=== PATIENT | male | born 1990 | race Caucasian/White ===

== ENCOUNTER 2024-02-15 20:25 | Emergency (ER) | payer SELFPAY ==
[2024-02-15] VITALS (7 sets, daily range): BP systolic 149–185; BP diastolic 89–99; BMI 38.3
--- NOTE | 2024-02-15 21:01 | ED.GENMED ---
History of Present Illness
General
Chief Complaint: Blood Pressure Problem
Source: patient and spouse
Exam Limitations: none
Time Seen by Provider: 02/15/24 20:34
History of Present Illness
History of Present Illness:
33-year-old male presents with vague mild headache over the last 2 to 3 days also intermittent right nares nosebleed. Blood pressure was elevated at home with diastolics of 110 although this was a wrist blood pressure. Seen in urgent care and had
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 No chest pain shortness of breath exertional symptoms. No nosebleed currently.
Past History
Past History
ED Past Medical History: GERD and Other (Kidney stone)
ED Past Surgical History: None
Social History
Tobacco: Non-smoker
Alcohol: Occasional
Personal: Single
Living: with family
Employment: Other (High school student)
Family History
Family History: Negative Diabetes, Hypertension or CAD
Review of Systems
Review of Systems
All Other Systems: Not applicable
Constitutional: Denies fever
Respiratory: Reports no symptoms
Cardiac: Reports no symptoms
Phy Exam
Physical Exam
Physical Exam:
GENERAL: Alert and oriented in no apparent distress
EYE: Orbits normal.
NECK: Supple, no significant adenopathy.
ENT: Pharynx without erythema irritation right nasal septum no active bleeding
CARDIAC: Regular rate and rhythm without any obvious murmurs.
LUNGS: Clear breath sounds,normal
ABDOMEN: Soft, without focal tenderness or distention. Elevated BMI.
NEUROLOGICAL: Alert and oriented , grossly non-focal
SKIN: Warm and dry, no rash or lesion, no discoloration, skin intact.
MUSCULOSKELETAL: No edema,no deformity.Good color
PSYCH: Normal and appropriate interaction.
Course
Orders/Labs/Results
Orders:
Orders
02/15/24 20:26
EKG [Electrocardiogram (*1)] Urgent
Reason for Study: Abnormal EKG
EKG- Treatment ONCE
02/15/24 20:48
IV Insert/Care/Rem.- Treatment PRN
02/15/24 20:49
Cardiac Monitoring- Treatment ONCE
02/15/24 21:28
Basic Metabolic Panel Urgent
Complete Blood Count/With Diff Urgent
TSH Reflex To Free T4 Urgent
02/15/24 23:50
Amoxicillin 875 mg/Clav 125 mg [Augmentin 875 mg/125 mg] 1 tablet PO NOW STA
Abnormal Lab Results
02/15/24
21:28
WBC 15.2 H 10^3/uL
(4.8-10.8)
Abs Immat Gran (auto) 0.1 H 10^3/uL
(0-0.05)
Absolute Neuts (auto) 10.3 H 10^3/uL
(1.4-6.5)
Absolute Monos (auto) 1.1 H 10^3/uL
(0.1-0.6)
Immature Gran % 0.6 H %
(0-0.5)
Calcium 10.9 H mg/dl
(8.4-10.2)
02/15/24 21:28
02/15/24 21:28
Vital Signs
Initial and Last Documented VS:
Initial Vital Signs
Temp Pulse Resp BP Pulse Ox
99.6 F 97 16 167/99 99
02/15/24 20:29 02/15/24 20:29 02/15/24 20:29 02/15/24 20:29 02/15/24 20:29
Last Documented Vital Signs
Temp Pulse Resp BP Pulse Ox
99.6 F 81 16 149/91 95
02/15/24 20:29 02/15/24 23:30 02/15/24 23:30 02/15/24 23:30 02/15/24 23:30
MDM/Problems Addressed
Differential Diagnosis Includes:
I do not feel the nosebleed has any issue with his hypertension. His irritation of the nasal septum. Currently not bleeding. Headaches are minimal in nature. Stable neurologic symptoms. No indication for radiologic testing. EKG findings at
urgent care are nonurgent. As it showed an incomplete right bundle and left anterior fascicular block. Our EKG just shows left axis deviation and he has no acute cardiac symptoms. Will however monitor his blood pressure check his renal function
check his thyroid.
*Pulse Oximetry
Patient hypoxic: no
*EKG
Interpreted by ED Provider?: Yes
Interpretation: normal
Comparison EKG: no comparison EKG present
Heart Rate: 93
Rate: normal
Rhythm: sinus
[place]: left axis deviation
Interval: normal interval
QRS Pattern: normal QRS
Ischemia: no ischemia
*Critical Care Note
Total Time (30-74mins, 75-104mins- exclusive of procedures): Not Applicable
Update Note
Update Note:
Medically stable. Leukocytosis. Previously had leukocytosis x 2. Unsure whether this is just related to when he is ill or whether he runs a chronic leukocytosis. He does have some more right-sided headache although vague and mild in nature.
Will cover for possible sinusitis. Blood pressure mildly elevated but does not warrant emergent management. Discussed options of starting amlodipine versus exercise weight reduction and close follow-up. He would like to hold on hypertensive meds
at this time.
ED Attending Note
-
Portions of this chart may have been created with voice recognition software.� Occasional wrong word or��sound alike� substitutions may have occurred due to the inherent limitations of voice recognition software.
Discharge Plan
Departure
Patient Disposition: Home (Routine Discharge)
Date of Disposition: 02/15/24
Time of Disposition: 23:45
Patient with high blood pressure during this ER visit?: Yes
Discharge Problem:
Intermittent epistaxis, Hypertension, Possible sinusitis
Instructions: Headache, Adult (DC), Nosebleeds ED, BLOOD PRESSURE
Prescriptions:
New
amoxicillin-pot clavulanate 875-125 mg tablet
1 tab PO BID Qty: 20 0RF
Referrals:
[facility] [Outside]
Britney Dominguez, DO [Active] - Next open appointment
NONE,* [Family Provider] -
Activity Restrictions/Additional Instructions:
Watch your blood pressures closely.
I would recommend getting a repeat CBC done in 2 to 4 weeks. If your white count is still elevated, I would recommend follow-up with hematology. I gave you the name above you could call
You also need to find a regular physician to follow-up your blood pressure.
The prescription was sent to your pharmacy
Interventions
Interventions:
*Risk Screen - Suicide Last Done: 02/15/24 20:55
*General Assessment Last Done: 02/15/24 20:55
*Neglect/Abuse Screening Last Done: 02/15/24 20:55
ED- Fall Risk Assessment Last Done: 02/15/24 20:55
*ED COVID-19 Vaccine History Last Done: 02/15/24 20:55
ED- Cardiac Assessment Last Done: 02/15/24 20:55
ED- Neurological Assessment Last Done: 02/15/24 20:55
ED- Pulmonary Assessment Last Done: 02/15/24 20:55
Discharge Date and Time
Print Language: LITHUANIAN
[2024-02-15 21:51] LABS: % Basophils 0.7 % (0-2); % Eosinophils 0.9 % (0-6); % Immature Granulocytes 0.6 % (0-0.5); % Lymphocytes 22.7 % (20.5-51.1); % Monocytes 7.4 % (1.7-9.3); % Neutrophils 67.7 % (42.2-75.2); Absolute Basophils 0.1 10^3/uL (0-0.2); Absolute Eosinophils 0.1 10^3/uL (0-0.7); Absolute Immature Granulocytes 0.1 10^3/uL (0-0.05); Absolute Lymphocytes 3.4 10^3/uL (1.2-3.4); Absolute Monocytes 1.1 10^3/uL (0.1-0.6); Absolute Neutrophils 10.3 10^3/uL (1.4-6.5); Mean Corpuscular Hgb 28.2 pg (27.0-31.0); Mean Corpuscular Volume 82.9 fL (80.0-94.0); Mean Platelet Volume 9.5 fL (7.4-10.4); Nucleated Red Blood Cells % 0 % (-); Platelet Count 348 10^3/uL (130-400); Red Blood Cell Count 5.67 10^6/uL (4.70-6.10); Red Cell Dist. Width 12.5 % (11.5-14.5); White Blood Cell Count 15.2 10^3/uL (4.8-10.8)
[2024-02-15 21:56] LABS: Blood Urea Nitrogen 20 mg/dl (9-20); Calcium 10.9 mg/dl (8.4-10.2); Carbon Dioxide 26 mmol/L (22-30); Chloride 100 mmol/L (98-107); Glucose 98 mg/dl (70-99); Potassium 4.2 mmol/L (3.5-5.1); Sodium 140 mmol/L (135-145); eGFR > 60.00
[2024-02-16] MEDS: AUGMENTIN 875 MG/125 MG 1 TABLET PO (00:01)
== END 2024-02-16 00:17 | disposition home or self-care (01) ==
LOC: EMR 20:25
PROVIDERS: EMERGENCY PHYSICIAN Emergency Medicine
DX: R04.0 Epistaxis (principal); I10 Essential (primary) hypertension; K21.9 Gastro-esophageal reflux disease without esophagitis
CPT/HCPCS: 99284; 80048; 84443; 85025; 93005